=== PATIENT | male | born 1960 | race Caucasian/White ===

== ENCOUNTER 2018-07-15 21:01 | Emergency (ER) | payer SELFPAY ==
[2018-07-15] MEDS ORDERED: PERCOCET 5/325 PO ONE (21:53)
[2018-07-15] MEDS ORDERED: MOTRIN PO ONE (21:53)
[2018-07-15] MEDS ORDERED: NACL 0.9% IR ONE ×2 (21:53→23:00)
[2018-07-15] MEDS ORDERED: ANTIBIOTIC OINT TP STA (21:54)
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
[2018-07-15] MEDS ORDERED: NACL 0.9% 1,000 ML IR ONE (22:10)
[2018-07-15 23:37] VITALS: BP 145/88
== END 2018-07-16 00:48 | disposition home or self-care (01) ==
LOC: ED 21:01
DX: T21.24XA Burn of second degree of lower back, initial encounter (principal); T21.21XA Burn of second degree of chest wall, initial encounter; F17.200 Nicotine dependence, unspecified, uncomplicated; X12.XXXA Contact with other hot fluids, initial encounter; Y93.89 Activity, other specified; Y92.009 Unspecified place in unspecified non-institutional (private) residence as the place of occurrence of the external cause; Y99.8 Other external cause status
CPT/HCPCS: 99283